=== PATIENT | male | born 1945 | race Caucasian/White ===

== ENCOUNTER 2017-10-25 10:38 | Inpatient (IN) | payer MEDICARE ==
--- NOTE | 2017-10-25 11:13 | ED ---
General Adult HPI - General Chief complaint: Seizure Stated complaint: Seizure Time Seen by Provider: 10/25/17 10:53 Source: patient, family, RN notes reviewed Mode of arrival: EMS Limitations: altered mental status - History of Present Illness Initial comments: Patient is a pleasant 72-year-old male presenting to the emergency department following seizure. Patient was acting abnormal for up to 15 minutes prior to seizure activity. Patient was confused and with bizarre behavior. Patient then had generalized seizure activity lasting around 3 minutes witnessed by the . Patient has been confused than seizure. Patient does have a history of seizure once approximately 30 years ago. No recent illness. No injury. Patient denies any pain however does admit to feeling somewhat confused. Patient does not recall the episode - Related Data Home Medications Medication Instructions Recorded Confirmed Aspirin EC [Ecotrin] 325 mg PO HS 10/25/17 10/25/17 Atorvastatin [Lipitor] 40 mg PO HS 10/25/17 10/25/17 Isosorbide Mononitrate ER [Imdur] 30 mg PO HS 10/25/17 10/25/17 Lisinopril [Zestril] 5 mg PO HS 10/25/17 10/25/17 Metoprolol Tartrate [Lopressor] 12.5 mg PO HS 10/25/17 10/25/17 Prasugrel [Effient] 10 mg PO DIRECTED 10/25/17 10/25/17 Allergies Allergy/AdvReac Type Severity Reaction Status Date / Time No Known Allergies Allergy Unverified 10/25/17 11:14 Review of Systems ROS Statement: Those systems with pertinent positive or pertinent negative responses have been documented in the HPI. ROS Other: All systems not noted in ROS Statement are negative. Constitutional: Denies: fever Eyes: Denies: eye pain ENT: Denies: ear pain Respiratory: Denies: cough Cardiovascular: Denies: chest pain Endocrine: Denies: fatigue Gastrointestinal: Denies: abdominal pain Genitourinary: Denies: dysuria Musculoskeletal: Denies: back pain Skin: Denies: rash Neurological: Denies: headache, weakness Past Medical History Past Medical History: Hyperlipidemia, Hypertension History of Any Multi-Drug Resistant Organisms: None Reported Past Surgical History: Coronary Bypass/CABG, Heart Catheterization With Stent Additional Past Surgical History / Comment(s): Triple bypass at age 49, Stent at age 64 Past Psychological History: No Psychological Hx Reported Smoking Status: Never smoker Past Alcohol Use History: None Reported Past Drug Use History: None Reported General Exam Limitations: no limitations General appearance: alert, in no apparent distress Head exam: Present: atraumatic Eye exam: Present: normal appearance, PERRL, EOMI, other (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 Absent: tenderness, meningismus Respiratory exam: Present: normal lung sounds bilaterally Cardiovascular Exam: Present: regular rate, normal rhythm GI/Abdominal exam: Present: soft. Absent: tenderness Extremities exam: Present: normal inspection. Absent: pedal edema, calf tenderness Neurological exam: Present: alert, altered, CN II-XII intact. Absent: motor sensory deficit Expanded Neurological exam: Present: protecting the airway Patient oriented to: Present: person (Only oriented to first name). Absent: place, time Speech: Present: fluid speech Cranial nerves: EOM's Intact: Normal, Facial Sensation: Normal Sensory exam: Upper Extremity Light Touch: Normal, Lower Extremity Light Touch: Normal Motor strength exam: RUE: 5, LUE: 5, RLE: 5, LLE: 5 Eye Response: (4) open spontaneously Motor Response: (6) obeys commands Verbal Response: (4) confused conversation Psychiatric exam: Present: normal affect, normal mood Skin exam: Present: normal color Course Vital Signs 10/25/17 10/25/17 10/25/17 10:40 11:51 13:00 Temperature 97.6 F Pulse Rate 68 61 67 Respiratory 20 18 18 Rate Blood Pressure 126/65 116/58 125/61 O2 Sat by Pulse 94 L 96 96 Oximetry EKG Findings - EKG Comments: EKG Findings:: Normal sinus rhythm 66. OK 160. QRS 102. QT 426. QTc 446. Left axis. Normal QRS. No acute ST change. Medical Decision Making - Medical Decision Making Patient reevaluated and resting comfortably in bed. Patient is slightly improved and is now oriented to place. Patient and family were updated on results and plan. Case was discussed in detail with Dr. Church, who will admit for hospital call. Neurology will be consulted. - Lab Data Result diagrams: 10/25/17 10:52 10/25/17 11:50 Lab Results 02/23/18 02/23/18 Range/Units 10:52 11:50 WBC 6.6 (3.8-10.6) k/uL RBC 5.04 (4.30-5.90) m/uL Hgb 15.9 (13.0-17.5) gm/dL Hct 46.8 (39.0-53.0) % MCV 92.9 (80.0-100.0) fL MCH 31.5 (25.0-35.0) pg MCHC 34.0 (31.0-37.0) g/dL RDW 12.6 (11.5-15.5) % Plt Count 228 (150-450) k/uL Neutrophils % 80 % Lymphocytes % 11 % Monocytes % 6 % Eosinophils % 1 % Basophils % 1 % Neutrophils # 5.3 (1.3-7.7) k/uL Lymphocytes # 0.8 L (1.0-4.8) k/uL Monocytes # 0.4 (0-1.0) k/uL Eosinophils # 0.1 (0-0.7) k/uL Basophils # 0.0 (0-0.2) k/uL Sodium 140 (137-145) mmol/L Potassium 4.3 (3.5-5.1) mmol/L Chloride 106 (98-107) mmol/L Carbon Dioxide 24 (22-30) mmol/L Anion Gap 10 mmol/L BUN 20 (9-20) mg/dL Creatinine 0.80 (0.66-1.25) mg/dL Est GFR (MDRD) Af Amer >60 (>60 ml/min/1.73 sqM) Est GFR (MDRD) Non-Af >60 (>60 ml/min/1.73 sqM) Glucose 112 H (74-99) mg/dL Calcium 9.0 (8.4-10.2) mg/dL Total Bilirubin 0.4 (0.2-1.3) mg/dL AST 25 (17-59) U/L ALT 29 (21-72) U/L Alkaline Phosphatase 79 (38-126) U/L Total Protein 6.0 L (6.3-8.2) g/dL Albumin 3.8 (3.5-5.0) g/dL Serum Alcohol <10 mg/dL - Radiology Data Radiology results: report reviewed (Computed tomography scan of the brain shows no acute hemorrhage or mass effect. Nonspecific faint periventricular white matter changes.) Disposition Clinical Impression: New onset seizure Disposition: ADMITTED IP TO THIS HOSP Referrals: Mary Agosto DO [Primary Care Provider] - 1-2 days Decision Time: 14:13
[2017-10-25 11:25] LABS: Basophils % (A) 1 %; Eosinophils # (A) 0.1 k/uL (0-0.7); Eosinophils % (A) 1 %; HCT 46.8 % (39.0-53.0); HGB 15.9 gm/dL (13.0-17.5); Lymphocytes # (A) 0.8 k/uL (1.0-4.8); Lymphocytes % (A) 11 %; MCH 31.5 pg (25.0-35.0); MCV 92.9 fL (80.0-100.0); Mean Platelet Volume 7.3; Monocytes # (A) 0.4 k/uL (0-1.0); Monocytes % (A) 6 %; Neutrophils # (A) 5.3 k/uL (1.3-7.7); Neutrophils % (A) 80 %; Platelet Count 228 k/uL (150-450); RBC 5.04 m/uL (4.30-5.90); RDW 12.6 % (11.5-15.5); WBC 6.6 k/uL (3.8-10.6)
--- NOTE | 2017-10-25 11:48 | CT ---
EXAMINATION TYPE: CT brain wo con DATE OF EXAM: 10/25/2017 COMPARISON: NONE HISTORY: Seizure activity CT DLP: 830.9 mGycm Automated exposure control for dose reduction was used. FINDINGS: Ventricular system is midline. There is no evidence of acute intracranial hemorrhage or mass effect. Faint periventricular hypoattenuation the white matter is nonspecific. Intracranial atherosclerotic c hanges noted. Calvarium intact. IMPRESSION: NO ACUTE HEMORRHAGE OR MASS EFFECT. THERE IS FAINT PERIVENTRICULAR WHITE MATTER CHANGES WHICH ARE NON SPECIFIC BUT MOST LIKELY ON THE BASIS OF REMOTE MICROVASCULAR ISCHEMIA. IF THERE IS CONCERN FOR ACUTE ISCHEMIA CORRELATE WITH MRI CLINICALLY WARRANTED.
[2017-10-25 12:11] LABS: ALT 29 U/L (21-72); AST 25 U/L (17-59); Albumin 3.8 g/dL (3.5-5.0); Alcohol <10 mg/dL; Alkaline Phosphatase 79 U/L (38-126); Anion Gap 10 mmol/L; Blood Urea Nitrogen 20 mg/dL (9-20); Carbon Dioxide 24 mmol/L (22-30); Chloride 106 mmol/L (98-107); Glucose 112 mg/dL (74-99); Potassium 4.3 mmol/L (3.5-5.1); Sodium 140 mmol/L (137-145); Total Bilirubin 0.4 mg/dL (0.2-1.3)
[2017-10-25] MEDS ORDERED: LORazepam 2 MG/ML INJ IV PRN (14:15)
[2017-10-25 14:30] LABS: Appearance,Urine Clear (Clear); Bilirubin,Urine Negative (Negative); Blood,Urine Negative (Negative); Color,Urine Yellow; Glucose,Urine (UA) Negative (Negative); Ketones,Urine Trace (Negative); Leukocyte Esterase,Urine Negative (Negative); Nitrite,Urine Negative (Negative); PH, Urine 5.5 (5.0-8.0); Protein,Urine Trace (Negative); Specific Gravity,Urine 1.017 (1.001-1.035); Urobilinogen,Urine <2.0 mg/dL (<2.0)
[2017-10-25] MEDS ORDERED: PHENYTOIN SODIUM INJ 1,000 MG in SODIUM CHLORIDE 0.9% 100 ML IVPB STA (14:31)
[2017-10-25 14:39] LABS: Amphetamine Screen,Urine Not Detected (NotDetected); Barbiturate Screen,Urine Not Detected (NotDetected); Benzodiazepines Screen,Urine Not Detected (NotDetected); Cocaine Screen,Urine Not Detected (NotDetected); Methadone Screen, Urine Not Detected (NotDetected); Opiate Screen,Urine Not Detected (NotDetected); Oxycodone Screen, Urine Not Detected (NotDetected); Phencyclidine Screen,Urine Not Detected (NotDetected); Tricyclic Antidepressant,Urine Not Detected (NotDetected); Urn Cannabinoid Scrn Not Detected (NotDetected)
[2017-10-25] MEDS: SODIUM CHLORIDE 0.9% 1,000 ML IV SCH (15:00)
[2017-10-25] MEDS ORDERED: SODIUM CHLORIDE 0.9% 1,000 ML IV ONE (15:03)
--- NOTE | 2017-10-25 19:28 | XR ---
EXAMINATION: XR chest 1V portable DATE AND TIME: 10/25/2017 7:00 PM ORDERING PROVIDER: Jamar Gamble CLINICAL INDICATION: pneumonia TECHNIQUE: AP portable upright COMPARISON: None. DESCRIPTION: EKG leads and sternal sutures and mediastinal clips noted. The lungs are clear. The pleural spaces are negative. The cardiac silhouette is not enlarged. The mediastinal and pleural silhouettes are unremarkable. The skeletal structures are intact without focal findings. The soft tissues are unremarkable. IMPRESSION: NO ACUTE PROCESS.
--- NOTE | 2017-10-25 20:07 | MR ---
EXAMINATION TYPE: MR brain wo con DATE OF EXAM: 10/25/2017 COMPARISON: NONE HISTORY: New onset seizure, hx of seizures 30 years ago TECHNIQUE: Standard multiplanar, multisequence MRI departmental protocol. Multiplanar, multisequence sequences acquired, including diffusion-weighted imaging. FINDINGS: There is no restricted diffusion to suggest acute or subacute infarction. There is no mass or mass effect or evidence of hemorrhage. There are a scattered 1 to 5 mm, with most measuring 1-2 mm, nonspecific deep white matter T2 hyperin tensities within the morelos radiata and centrum semiovale bilaterally. The extra-axial compartment is unremarkable. The vascular flow void pattern is unremarkable. The middle ear cavities and mastoid sinus air cells and paranasal sinuses are clear. The orbits are unremarkable. The calvarium is negative for focal skeletal defects. Incidental Finding: There is a 3 cm T2 hyperintense lobulated left parotid mass, centered in the supe rficial lobe of the left parotid. Further characterization of this mass is recommended with Doppler u ltrasound catheterization, and consideration of cervical lymph node station imaging with CT or MRI. IMPRESSION: 1. INCIDENTAL 3 CM LEFT PAROTID MASS. 2. NONSPECIFIC SCATTERED BILATERAL DEEP WHITE MATTER 1 - MM T2 HYPERINTENSITIES; REQUEST CLINICAL CON SIDERATION OF THE PROTEAN ETIOLOGIES INCLUDING INFLAMMATORY, INFECTIOUS, ISCHEMIC, ETC.
--- NOTE | 2017-10-25 20:33 | HP ---
HISTORY AND PHYSICAL CHIEF COMPLAINTS: Seizure disorder. HISTORY OF PRESENT ILLNESS: This 72-year-old gentleman with a past medical history of CAD, hyperlipidemia, history of right leg fracture, history of CAD, CABG, stent being followed by in the outpatient setting, had a last seizure about 4 years ago. Those seizures were thought to be related to alcohol. Today the patient was acting strange, according to he , and pacing up and down and subsequently patient had generalized tonic-clonic seizures and lasted for 15 minutes. The patient is confused. Patient was taken to [facility], admitted for further evaluation and treatment. Currently the sensorium has improved significantly; however the CT scan did not show any acute abnormality except suspected small-vessel ischemic changes. MRI has been arranged as well as neurology consultation. There is no history of any fever, rigors. There is no history of hematochezia melena, chest pain, palpitation at this time. PAST MEDICAL HISTORY: CAD, CABG, stent, hyperlipidemia, right leg fracture, history of smoking and history of alcohol also previously. MEDICATIONS PRIOR TO ADMISSION: Include home medications: 1. Effient 10 mg p.r.n. 2. Ecotrin 81 mg q.h.s. 3. Zestril 5 mg q.h.s. 4. Imdur 30 mg. 5. Lopressor 12.5 mg daily. 6. Lipitor 40 mg q.h.s. ALLERGIES: None. FAMILY HISTORY: History of CVA and TIA, dementia, stroke. SOCIAL HISTORY: Previous history of alcohol and smoking. No history of current usage. REVIEW OF SYSTEMS: ENT: No diminished hearing, diminished vision. CARDIOVASCULAR: No angina, palpitations. RESPIRATORY: No cough. GI: No nausea or vomiting. : No dysuria. NERVOUS: As mentioned earlier. ALLERGY/IMMUNOLOGY: No asthma or hay fever. MUSCULOSKELETAL: As mentioned earlier. HEMATOLOGY/ONCOLOGY: No history of anemia. ENDOCRINE: No history of diabetes, hypothyroidism. CONSTITUTIONAL: As mentioned earlier. DERMATOLOGY: Negative. RHEUMATOLOGY: Negative. PSYCHIATRY: As mentioned earlier. PHYSICAL EXAMINATION: Alert and oriented x2. Pulse 86, blood pressure 100/56, respirations 16, temperature 98.9, pulse ox 96% on 2L. HEENT: Conjunctivae normal. Oral mucosa moist. NECK: No jugular venous distention. No carotid bruits. No lymph node enlargement. CARDIOVASCULAR: S1, S2 muffled. RESPIRATORY: Breath sounds diminished in the bases. No rhonchi. No crackles. ABDOMEN: Soft, nontender. No mass palpable. No hepatosplenomegaly. LEGS: No edema. No swelling. NERVOUS SYSTEM: Higher functions as mentioned earlier. Moves all 4 limbs. No focal motor or sensory deficits. LYMPHATIC: No lymphadenopathy in neck or axillae. SKIN: No ulcer, rash or bleeding. LABS: CBC within normal limits. CMP: Glucose 112. Total protein 6. Drug screen is negative. ASSESSMENT: 1. Acute seizure disorder, tonic-clonic, for evaluation. 2. 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 3. History of coronary artery disease, coronary artery bypass graft, stent. 4. History of nicotine dependence. 5. History of EtOH. 6. Hyperlipidemia. 7. History of right leg fracture. 8. History of basal cell carcinoma, nose. RECOMMENDATIONS AND DISCUSSION: In this 72-year-old gentleman who presented with multiple complex medical issues , will monitor the patient closely. Continue with the current medical management, symptomatic treatment and resume the home medications. The patient to Dilantin. I would recommend MRI and to closely follow with Cardiology as well as Neurology. Telemetry to rule out cardiac arrhythmias. Guarded prognosis because of multiple complex medical issues. Further recommendations to follow. Repeat labs will be ordered. MMODL / IJN: [id number] / ANNELISE
[2017-10-25] MEDS ORDERED: ASPIRIN 325 MG TAB PO SCH (21:00)
[2017-10-25] MEDS ORDERED: ATORVASTATIN 40 MG TAB PO SCH (21:00)
[2017-10-25] MEDS ORDERED: LISINOPRIL 5 MG TAB PO SCH (21:00)
[2017-10-25] MEDS ORDERED: ISOSORBIDE MONONITRATE ER 30 MG TAB.ER.24H PO SCH (21:00)
[2017-10-25] MEDS ORDERED: METOPROLOL TARTRATE 12.5 MG TAB PO SCH (21:00)
[2017-10-25] MEDS: PHENYTOIN SODIUM EXTENDED 100 MG CAP PO SCH (21:07)
--- NOTE | 2017-10-25 22:15 | US ---
EXAMINATION TYPE: US carotid duplex BILAT DATE OF EXAM: 10/25/2017 COMPARISON: NONE CLINICAL HISTORY: Stenosis. Seizure EXAM MEASUREMENTS: RIGHT: Peak Systolic Velocity (PSV) cm/sec ----- Right CCA: 116.1 ----- Right ICA: 107.3 ----- Right ECA: 145.7 ICA/CCA ratio: 0.9 RIGHT: End Diastole cm/sec ----- Right CCA: 32.1 ----- Right ICA: 34.8 ----- Right ECA: 13.6 LEFT: Peak Systolic Velocity (PSV) cm/sec ----- Left CCA: 124.2 ----- Left ICA: 132.3 ----- Left ECA: 143.7 ICA/CCA ratio: 1.1 LEFT: End Diastole cm/sec ----- Left CCA: 33.8 ----- Left ICA: 35.4 ----- Left ECA: 25.4 VERTEBRALS (direction of flow): Right Vertebral: Antegrade Left Vertebral: Antegrade Rhythm: Normal IMPRESSION: 1. NEGATIVE FOR HEMODYNAMICALLY SIGNIFICANT STENOSIS. 2. MILD TO MODERATE PLAQUE BILATERAL BIFURCATIONS. 3. SLIGHTLY INCREASED VELOCITIES BILATERAL ECA AND LEFT ICA.
[2017-10-26 04:29] VITALS: RESP 16
[2017-10-26 07:40] LABS: Basophils % (A) 0 %; Eosinophils # (A) 0.1 k/uL (0-0.7); Eosinophils % (A) 2 %; HCT 41.9 % (39.0-53.0); HGB 13.6 gm/dL (13.0-17.5); Lymphocytes # (A) 1.2 k/uL (1.0-4.8); Lymphocytes % (A) 18 %; MCH 31.3 pg (25.0-35.0); MCHC 32.4 g/dL (31.0-37.0); MCV 96.5 fL (80.0-100.0); Mean Platelet Volume 7.1; Monocytes # (A) 0.5 k/uL (0-1.0); Monocytes % (A) 8 %; Neutrophils # (A) 4.7 k/uL (1.3-7.7); Neutrophils % (A) 71 %; Platelet Count 175 k/uL (150-450); RBC 4.35 m/uL (4.30-5.90); RDW 12.5 % (11.5-15.5); WBC 6.6 k/uL (3.8-10.6)
[2017-10-26 07:59] LABS: Anion Gap 8 mmol/L; Blood Urea Nitrogen 14 mg/dL (9-20); Calcium 8.7 mg/dL (8.4-10.2); Carbon Dioxide 25 mmol/L (22-30); Chloride 108 mmol/L (98-107); Cholesterol 137 mg/dL (<200); Glucose 78 mg/dL (74-99); HDL Cholesterol 43 mg/dL (40-60); LDL Cholesterol,Calculated 78 mg/dL (0-99); Potassium 4.2 mmol/L (3.5-5.1); Sodium 141 mmol/L (137-145); Triglycerides 81 mg/dL (<150)
--- NOTE | 2017-10-26 08:51 | ECHOF ---
Referral Reason:Thrombus MEASUREMENTS -------- HEIGHT: 165.1 cm WEIGHT: 79.4 kg BP: 125/61 RVIDd: 2.6 cm (< 3.3) IVSd: 0.9 cm (0.6 - 1.1) LVIDd: 4.7 cm (3.9 - 5.3) LVPWd: 1.0 cm (0.6 - 1.1) IVSs: 1.3 cm LVIDs: 3.7 cm LVPWs: 1.3 cm LAESV Index (A-L): 18.89 ml/m Ao Diam: 3.1 cm (2.0 - 3.7) AV Cusp: 1.5 cm (1.5 - 2.6) LA Diam: 3.4 cm (2.7 - 3.8) EPSS: 1.3 cm MV E Joaquin: 0.64 m/s MV DecT: 338 ms MV A Joaquin: 0.87 m/s MV E/A Ratio: 0.74 AV maxP.64 mmHg AV meanP.89 mmHg RAP: 5.00 mmHg RVSP: 31.23 mmHg MV EF SLOPE: 62.49 mm/s (70 - 150) MV EXCURSION: 1.70 cm (> 18.000) FINDINGS -------- Sinus rhythm. This was a technically adequate study. The left ventricular size is normal. Left ventricular wall thickness is normal. Overall left vent ricular systolic function is normal with, an EF between 55 - 60 %. The right ventricle is normal in size and function. Normal LA size by volume 22+/-6 ml/m2. The right atrium is normal in size. There is mild aortic valve sclerosis. There is no evidence of aortic regurgitation. There is no e vidence of aortic stenosis. The mitral valve leaflets are mildly thickened. There is trace to mild mitral regurgitation. Trace tricuspid regurgitation present. Right ventricular systolic pressure is normal at < 35 mmHg. There is no evidence of pulmonary hypertension. The pulmonic valve is normal. The aortic root size is normal. Normal inferior vena cava with normal inspiratory collapse consistent with estimated right atrial pre ssure of 5 mmHg. The pericardium is normal. There is no pericardial effusion. CONCLUSIONS -------- 1. Sinus rhythm. 2. This was a technically adequate study. 3. The left ventricular size is normal. 4. Left ventricular wall thickness is normal. 5. Overall left ventricular systolic function is normal with, an EF between 55 - 60 %. 6. Normal LA size by volume 22+/-6 ml/m2. 7. There is mild aortic valve sclerosis. 8. The mitral valve leaflets are mildly thickened. 9. There is trace to mild mitral regurgitation. 10. Trace tricuspid regurgitation present. 11. Right ventricular systolic pressure is normal at < 35 mmHg. 12. There is no evidence of pulmonary hypertension. 13. The aortic root size is normal. 14. There is no pericardial effusion. CURATORIAL SPECIALIST: Kwesi Cruz RDCS
[2017-10-26] MEDS ORDERED: METOPROLOL TARTRATE 12.5 MG TAB PO SCH (09:00)
[2017-10-26] MEDS: SODIUM CHLORIDE 0.9% 1,000 ML IV SCH ×2 (10:39→14:20)
[2017-10-26] MEDS ORDERED: ACETAMINOPHEN TAB 325 MG TAB PO PRN (12:03)
[2017-10-26] MEDS: PHENYTOIN SODIUM EXTENDED 100 MG CAP PO SCH (12:19)
[2017-10-26 12:34] VITALS: TEMP 98
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
[2017-10-26 16:12] VITALS: BP 107/66; PULSE 58
--- NOTE | 2017-10-26 17:01 | CONS ---
CONSULTATION This is a 72-year-old gentleman with a history of hypertension, hyperlipidemia, CAD with a prior bypass surgery and PCI. He presented here after a witnessed seizure by family and I was asked to see him because of his CAD. He has no chest discomfort. He is resting comfortably. Apparently this was a new onset seizure, although the last seizure he had was 30 years ago when he was having some alcohol withdrawals. His blood pressure has been under good control. He underwent stenting in 2008 and 2012. Has not had a stress test. He is quite active physically, has no chest pain to suggest angina with his day-to-day activities. The patient presented here after having an episode of seizure. Prior to the seizure, he had some bout of an abnormal bizarre behavior. He is being evaluated by Neurology. Cardiac-jerome appears to be stable. No chest pain or shortness of breath. The CAT scan also did not reveal any acute hemorrhage or mass effect. PAST MEDICAL HISTORY: 1. History of CAD with previous bypass surgery and PCI, the last stent was 2012. 2. Hypertension. 3. Hyperlipidemia. 4. History of alcoholism more than 30 years ago. At that time, he had some seizures. SOCIAL HISTORY: Not a smoker. Stopped alcohol 30 years ago. MEDICATIONS: Medications include aspirin 325 mg daily, Lipitor 40 mg daily, Imdur 30 mg daily, lisinopril 5 mg daily, metoprolol tartrate 12.5 mg daily, Effient 10 mg daily. ALLERGIES: No known allergies. PHYSICAL EXAMINATION: On examination, blood pressure is 128/70, pulse rate is 68 per minute regular. HEENT: Unremarkable. Fundus was not examined by me. Neck is supple. No JVD. I do not hear a carotid bruit. Heart exam reveals S1, S2 heard normally. No significant murmurs. Lungs are clear. Abdomen is soft, nontender. Lower extremities reveal normal pulses, no edema. Central nervous system is normal. EKG revealed sinus mechanism, no acute changes. IMPRESSION: 1. New onset seizures. Neurology is being consulted and will be evaluated in this regard. 2. Stable coronary artery disease with a history of prior bypass surgery and PCI without evidence of ischemia. RECOMMENDATION: I am recommending that we can discontinue Effient altogether. Continue his other medications including aspirin and I will see this patient as needed from a cardiac standpoint. No other aggressive intervention is necessary at this time. His echocardiogram has been performed and revealed normal left ventricular size and systolic function without significant pulmonary hypertension. There is some aortic sclerosis and mild mitral annular calcification. No aggressive intervention necessary. Thank you very much for the consult. MARIA GUADALUPE / KEYANNA: [id number] /
[2017-10-26] MEDS ORDERED: levETIRAcetam 500 MG TAB PO SCH (21:00)
[2017-10-26] MEDS ORDERED: PRASUGREL 10 MG TAB PO SCH (21:00)
--- NOTE | 2017-10-26 23:28 | DS ---
DISCHARGE SUMMARY DATE OF SERVICE: 10/26/2017. FINAL DIAGNOSES: 1. Acute seizure disorder tonic-clonic. 2. History of previous seizures remotely related to alcohol apparently. 3. Left parotid mass. 4. History of coronary artery disease/coronary artery bypass grafting, stent. 5. History of nicotine dependence. 6. History of EtOH remotely. 7. History of hyperlipidemia. 8. Right leg fracture. 9. History of basal cell carcinoma of the nose. DISCHARGE DISPOSITION: The patient is being discharged in stable condition with guarded prognosis. Neurology cleared the patient for discharge. HISTORY OF PRESENT ILLNESS: This 72-year-old gentleman, was admitted with seizure disorder. Patient has multiple complex medical issues in the outpatient setting. The patient was treated symptomatically. Patient improved significantly and neurology cleared the patient for discharge. Keppra was initiated. MRI showed left parotid mass. DISCHARGE ADVICE AND MEDICATIONS: 1. Diet is cardiac diet. 2. Activity limited until followup. 3. Follow up with. 4. Recommended CT scan in the outpatient setting. PHYSICAL EXAMINATION: Vital signs stable. Cardiac system: S1, S2 muffled. Respiratory: Breath sounds diminished in the bases. Legs: No edema. No swelling. Central nervous system : No focal deficits. DISCHARGE ADVICE AND MEDICATIONS: 1. Diet is cardiac diet. 2. Activity limited until follow up. 3. Follow up with in one to two days. 4. Follow up with Dr. Garcia as advised. Cate. 5. Outpatient CT scan. 6. Ecotrin 320 mg q.h.s. 7. Lipitor 40 mg q.h.s. 8. Imdur ER 30 mg q.h.s. 9. Keppra 500 mg p.o. b.i.d. 10.Zestril 5 mg q.h.s. 11.Lopressor 12.5 mg daily. 12.Effient 10 mg p.o. q.h.s. Once again the patient is being discharged in stable condition with guarded prognosis. MMODL / IJN: [id number] / MTDD
--- NOTE | 2017-10-27 14:21 | EEG ---
ELECTROENCEPHALOGRAM REPORT DATE OF SERVICE: 10/26/2017. REASON FOR TESTING: Seizure. CURRENT ANTIEPILEPTIC MEDICATIONS: Dilantin. DESCRIPTION OF THE PROCEDURE: This EEG was performed using a 21 channel digital electroencephalograph, following international 10-20 system. DESCRIPTION OF THE RECORDING: From the beginning of the tracing, and with patient's eyes closed, the background rhythm was mostly consisting of 9-10 Hz alpha frequency in the posterior occipital leads. No obvious asymmetry is seen. Occasional movement artifacts and lead artifacts are seen. Photic stimulation was performed with a good driving response seen. No pathological waves were elicited. Hyperventilation was not performed. The patient remains awake throughout the tracing. No epileptiform discharges were seen. His EKG lead showed a regular rate and rhythm. INTERPRETATION: This awake EEG can be considered within normal limits. There is no asymmetry seen. No epileptiform discharges were noticed. The absence of epileptiform discharges does not rule out the diagnosis of epilepsy, therefore clinical correlation is recommended. MMSKYLERL / IJMaryann: [id number] /
== END 2017-10-26 16:40 | disposition home or self-care (01) | DRG 101 ==
LOC: EC 10:38 → OBSVTOIN 14:14 → 3OBS 14:14
PROVIDERS: ADMIT Internal Medicine; ATTEND Internal Medicine
DX: G40.409 Other generalized epilepsy and epileptic syndromes, not intractable, without status epilepticus (principal); I35.8 Other nonrheumatic aortic valve disorders; E78.5 Hyperlipidemia, unspecified; I10 Essential (primary) hypertension; I25.10 Atherosclerotic heart disease of native coronary artery without angina pectoris; Z95.5 Presence of coronary angioplasty implant and graft; Z95.1 Presence of aortocoronary bypass graft; Z85.828 Personal history of other malignant neoplasm of skin; Z79.82 Long term (current) use of aspirin; Z79.899 Other long term (current) drug therapy; Z82.49 Family history of ischemic heart disease and other diseases of the circulatory system
CPT/HCPCS: 36415; 70450; 70551; 71045; 80048; 80053; 80061; 80306; 80320; 81003; 83735; 85025; 93005; 93306; 93880; 95819; 96361; 96365; 96375; 99285

== ENCOUNTER 2017-12-11 16:29 | Observation (INO) | payer MEDICARE ==
[2017-12-11] MEDS ORDERED: SODIUM CHLORIDE 0.9% 500 ML IV STA (17:13)
[2017-12-11] MEDS ORDERED: SODIUM CHLORIDE 0.9% 1,000 ML IV STA (17:13)
[2017-12-11 17:34] LABS: Basophils % (A) 1 %; Eosinophils # (A) 0.1 k/uL (0-0.7); Eosinophils % (A) 1 %; HCT 46.9 % (39.0-53.0); HGB 15.8 gm/dL (13.0-17.5); Lymphocytes # (A) 0.8 k/uL (1.0-4.8); Lymphocytes % (A) 12 %; MCH 30.7 pg (25.0-35.0); MCHC 33.7 g/dL (31.0-37.0); Mean Platelet Volume 8.1; Monocytes # (A) 0.6 k/uL (0-1.0); Monocytes % (A) 9 %; Neutrophils # (A) 4.9 k/uL (1.3-7.7); Neutrophils % (A) 76 %; Platelet Count 229 k/uL (150-450); RBC 5.15 m/uL (4.30-5.90); RDW 12.9 % (11.5-15.5); WBC 6.5 k/uL (3.8-10.6)
[2017-12-11 17:41] LABS: MCV 91.1 fL (80.0-100.0)
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
[2017-12-11 17:51] LABS: ALT 25 U/L (21-72); AST 28 U/L (17-59); Acetaminophen <10.0 ug/mL; Albumin 4.3 g/dL (3.5-5.0); Alcohol <10 mg/dL; Alkaline Phosphatase 85 U/L (38-126); Anion Gap 18 mmol/L; Blood Urea Nitrogen 28 mg/dL (9-20); Calcium 9.5 mg/dL (8.4-10.2); Carbon Dioxide 20 mmol/L (22-30); Chloride 102 mmol/L (98-107); Glucose 116 mg/dL (74-99); Potassium 4.5 mmol/L (3.5-5.1); Salicylate <1.0 mg/dL; Sodium 140 mmol/L (137-145); Total Bilirubin 0.3 mg/dL (0.2-1.3); Total Protein 6.6 g/dL (6.3-8.2)
[2017-12-11 18:18] LABS: Appearance,Urine Clear (Clear); Bacteria,Urine Rare /hpf; Bilirubin,Urine Negative (Negative); Blood,Urine Negative (Negative); Color,Urine Yellow; Glucose,Urine (UA) Negative (Negative); Hyaline Casts,Urine 5 /lpf (0-2); Ketones,Urine 1+ (Negative); Leukocyte Esterase,Urine Negative (Negative); Nitrite,Urine Negative (Negative); PH, Urine 5.5 (5.0-8.0); Protein,Urine 1+ (Negative); RBC,Urine <1 /hpf (0-5); Specific Gravity,Urine 1.022 (1.001-1.035); Urobilinogen,Urine <2.0 mg/dL (<2.0); WBC,Urine <1 /hpf (0-5)
[2017-12-11 18:24] LABS: Amphetamine Screen,Urine Not Detected (NotDetected); Barbiturate Screen,Urine Not Detected (NotDetected); Benzodiazepines Screen,Urine Not Detected (NotDetected); Cocaine Screen,Urine Not Detected (NotDetected); Methadone Screen, Urine Not Detected (NotDetected); Opiate Screen,Urine Not Detected (NotDetected); Oxycodone Screen, Urine Not Detected (NotDetected); Phencyclidine Screen,Urine Not Detected (NotDetected); Tricyclic Antidepressant,Urine Not Detected (NotDetected); Urn Cannabinoid Scrn Not Detected (NotDetected)
[2017-12-11] MEDS ORDERED: LORazepam 2 MG/ML INJ IV PRN (18:48)
[2017-12-11] MEDS ORDERED: VALPROATE SODIUM 500 MG in SODIUM CHLORIDE 0.9% 50 ML IVPB STA (18:49)
[2017-12-11 19:19] VITALS: RESP 18
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
[2017-12-11] MEDS ORDERED: levETIRAcetam 500 MG TAB PO SCH (21:00)
[2017-12-11] MEDS ORDERED: levETIRAcetam IV 1,000 MG in SALINE 1 100ML.BAG IVPB STA (21:57)
[2017-12-11] MEDS: ASPIRIN 325 MG TAB PO SCH (22:08)
[2017-12-11] MEDS: PRASUGREL 10 MG TAB PO SCH (22:08)
[2017-12-11] MEDS: ISOSORBIDE MONONITRATE ER 30 MG TAB.ER.24H PO SCH (22:08)
[2017-12-11] MEDS: ATORVASTATIN 40 MG TAB PO SCH (22:08)
[2017-12-11] MEDS: LISINOPRIL 5 MG TAB PO SCH (22:09)
[2017-12-12] MEDS ORDERED: ACETAMINOPHEN TAB 325 MG TAB PO PRN (01:40)
[2017-12-12] MEDS ORDERED: levETIRAcetam IV 500 MG in SODIUM CHLORIDE 0.9% 100 ML IVPB SCH (09:00)
[2017-12-12] MEDS: ENOXAPARIN 40 MG/0.4 ML SYRINGE SQ SCH (09:10)
[2017-12-12] MEDS: METOPROLOL TARTRATE 12.5 MG TAB PO SCH (09:11)
--- NOTE | 2017-12-12 14:09 | P.PN ---
Subjective Progress Note Date: 12/12/17 Principal diagnosis: Patient is followed up for breakthrough seizure Patient seen and examined today, denies any headache or focal neurologic deficits. He is reporting some diplopia however he reports that this is not due to him. Denies any chest pain or trouble breathing at this time. Denies any further seizures since the last one he had in the ED Objective - Vital Signs Vital signs: Vital Signs Temp 98.1 F 12/12/17 06:23 Pulse 68 12/12/17 06:23 Resp 18 12/12/17 06:23 BP 105/58 12/12/17 06:23 Pulse Ox 96 12/12/17 08:41 Intake & Output 12/11/17 12/12/17 12/12/17 18:59 06:59 18:59 Intake Total 240 100 Output Total 325 Balance 240 -225 Weight 76.204 kg 75.977 kg Intake: IV 100 levETIRAcetam IV 500 mg 100 In Sodium Chloride 0.9% 100 ml @ 400 mls/hr IVPB Q12HR BRITT Rx#:[id number] Oral 240 Output: Urine 325 Other: # Voids 2 2 - Exam Constitutional: vital signs stable, Not in acute distress, pleasant, conversant Lungs: Clear to auscultation bilaterally, clear to percussion, normal respiratory effort Cardiovascular: Regular rate and rhythm, no murmurs, no gallops, no rubs, no peripheral edema Gastrointestinal: Soft, no tenderness to palpation, bowel sounds positive Extremities: No digital cyanosis or clubbing, peripheral pulses palpable and equal over bilateral radial arteries and dorsalis pedis artery, no calf muscle tenderness Psych: Alert, oriented to place, person and time, appropriate affect, intact judgment - Labs CBC & Chem 7: 12/11/17 16:42 12/11/17 16:42 Labs: Abnormal Lab Results - Last 24 Hours (Table) 12/11/17 12/11/17 12/11/17 Range/Units 16:42 16:42 17:53 Lymphocytes # 0.8 L (1.0-4.8) k/uL Carbon Dioxide 20 L (22-30) mmol/L BUN 28 H (9-20) mg/dL Glucose 116 H (74-99) mg/dL Urine Protein 1+ H (Negative) Urine Ketones 1+ H (Negative) Urine Bacteria Rare H (None) /hpf Hyaline Casts 5 H (0-2) /lpf Assessment and Plan Assessment: 72-year-old male with history of seizures, CAD status post stents and CABG, hypertension, and hyperlipidemia. He reports that he had the first seizure 45 years ago and it was associated with alcohol withdrawal. He remained on antiepileptic drugs for over 10 years and then he stopped them gradually. And then he went on for over 20 years without any seizures. However one month ago he had an episode of seizure he described it as grand mal seizure for which she was started on Keppra. He reports that in the past he was on phenobarbital and Dilantin but he didn't like how they made him feel. And when he was on Keppra for the past month gave him the same feeling if he didn't like say he decided to wean himself off Keppra which resulted in a breakthrough seizure that he had yesterday. He is not willing to continue back on Keppra and he would like to have a different agent, he is not willing to be on Dilantin either. For which we are waiting for neurology for their recommendations. Plan: #Breakthrough seizures secondary to noncompliance Currently resumed on Keppra however patient would like to consider different agents Seizure precautions Patient recently had full workup once ago including brain imaging which was reviewed and will not be repeated at this time pending further recommendations from neurology. MRI of the brain and computed tomography scan of the brain showed no acute process. Carotid ultrasound was negative for significant stenosis. Neurology consult #History of CAD Continue home medications Aspirin, Imdur, RACH inhibitor, statin, Effient, metoprolol Patient had a stress test done results are unknown, continue follow up outpatient as scheduled with cardiology #Hypertension currently controlled Continue home medications #Hyperlipidemia Continue home medications was Lipitor #DVT prophylaxis on Lovenox subcu #Incidental finding of left parotid mass during the MRI from last visit Consider outpatient follow-up PCP
[2017-12-12] MEDS: OXcarbazepine 300 MG TAB PO SCH (19:24)
[2017-12-12] MEDS: PRASUGREL 10 MG TAB PO SCH (21:09)
[2017-12-12] MEDS: ASPIRIN 325 MG TAB PO SCH (21:11)
[2017-12-12] MEDS: ISOSORBIDE MONONITRATE ER 30 MG TAB.ER.24H PO SCH (21:11)
[2017-12-12] MEDS: ATORVASTATIN 40 MG TAB PO SCH (21:11)
[2017-12-12] MEDS: LISINOPRIL 5 MG TAB PO SCH (21:11)
--- NOTE | 2017-12-12 21:50 | CONS ---
CONSULTATION DATE OF CONSULTATION: 12/12/2017 CHIEF COMPLAINT: Seizure. HISTORY OF PRESENT ILLNESS: Mr. Swan is a pleasant 72-year-old male who is being evaluated by the neurology service per the request of Dr. Gutierrez for a seizure. The patient was brought into [facility] Emergency Room after he had a witnessed seizure which was described as a generalized tonic-clonic seizure with postictal drowsiness. The patient had a recent seizure 2 months ago and was started on Keppra and discharged home. He states that he had significant side effects on Keppra, including drowsiness and a depressed mood. He slowly weaned himself off of the medication and took his last dose approximately 3 days ago. His Keppra levels were undetectable on this admission. The patient has a remote history of seizures approximately 40 years ago and was on Dilantin and phenobarbital for several years. He had been off of phenobarbital and Dilantin for approximately 20 years before he had this last seizure 2 months ago. This current seizure lasted approximately 3 minutes and was described as a generalized tonic-clonic seizure. The patient had a CT scan of the brain on his last admission which was normal. On this admission, his CBC and urinalysis were normal. His Keppra level was undetectable. His comprehensive metabolic profile was normal except for slightly elevated BUN at 28. At the time of my evaluation, he is sitting up in his bed and appears to be in no acute distress. He has been restarted on Keppra IV. He has not had any seizure-like activity since his admission. He denies any neurological symptoms at this time. PAST MEDICAL HISTORY: 1. Seizure disorder. 2. Coronary artery disease. 3. Dyslipidemia. 4. Remote history of alcohol abuse. 5. Skin cancer with history of resection. 6. History of appendectomy. 7. Coronary artery bypass grafting with stent placements as well. 8. Cataract surgery. SOCIAL HISTORY: He denies any alcohol or drug use at this time. He does have a remote history of alcohol abuse. He is a former smoker. FAMILY HISTORY: Positive for strokes, heart disease, dementia. HOME MEDICATIONS: Reviewed in the chart. ALLERGIES: PLAVIX. REVIEW OF SYSTEMS: CONSTITUTIONAL: Negative. EYES: Negative. ENT: Negative. CARDIOVASCULAR: Negative. RESPIRATORY: Negative. NEUROLOGICAL: As mentioned above. GASTROINTESTINAL: Negative. GENITOURINARY: Negative. DERMATOLOGICAL: Negative. MUSCULOSKELETAL: Negative. ENDOCRINE: Negative. PSYCHIATRIC: Negative. PHYSICAL EXAMINATION: Vital signs show a temperature of 98.4, pulse 67, respiration 18, blood pressure 122/69. GENERAL APPEARANCE: The patient is a well-developed elderly male who appears to be in no acute distress. HEENT: Normocephalic, atraumatic. No facial asymmetry is seen. He appears to have a stye on the right eyelid. NECK: Supple with no masses felt. CARDIOVASCULAR: Regular rate and rhythm. ABDOMEN: Nontender, nondistended. Extremities showed no edema or clubbing. NEUROLOGICAL EXAMINATION: The patient is alert, aware and oriented x3. Speech and language are normal. Strength is full in all 4 extremities. Sensory exam was normal to light touch in all 4 extremities. No facial asymmetry is seen on cranial nerve testing. No tremors or seizure-like activity is seen. IMPRESSION: 1. Seizure disorder. 2. Medication noncompliance due to adverse affects. RECOMMENDATION: The patient did have another generalized tonic-clonic seizure. As mentioned above, the patient had weaned himself off of Keppra without medical advice due to the above- mentioned adverse effects. I had a lengthy discussion with him regarding various treatment options. Vimpat would have been a good choice, but due to financial reasons, I discussed other medication options. I will start him on Trileptal 300 mg b.i.d., and after one week he will titrate up to 600 mg b.i.d. Possible side effects were discussed with the patient. The patient was informed that he is not to drive or operate any heavy machinery for a period of 6 months of being seizure-free. He will follow up with me after his discharge. He already has an appointment scheduled for later this month. From a neurology standpoint, the patient will likely be cleared for discharge tomorrow if he remains seizure-free. Thank you for allowing me to participate in the care of your patient. If you have any questions, please feel free to contact me. MARIA GUADALUPE / IJN: [id number] /
[2017-12-13 06:07] VITALS: BP 99/60; PULSE 52; TEMP 97.7
[2017-12-13] MEDS: ENOXAPARIN 40 MG/0.4 ML SYRINGE SQ SCH (08:10)
[2017-12-13] MEDS: OXcarbazepine 300 MG TAB PO SCH (08:10)
--- NOTE | 2017-12-13 11:06 | P.DS ---
Providers Date of admission: 12/11/17 18:46 Attending physician: Ross Gutierrez MD Consults: 12/11/17 18:46 Consult Physician Routine Consulting Provider: Douglas Garcia Consult Reason/Comments: known Do you want consulting provider notified?: Yes Primary care physician: Mary Agosto Hospital Course: Final diagnosis upon discharge #Breakthrough seizure secondary to medical noncompliance due to intolerance of side effects of current antiepileptic drugs Secondary diagnoses #History of CAD status post stents and CABG #Hypertension #Hyperlipidemia #Left parotid mass Hospital course 72-year-old male with history of seizures, CAD status post stents and CABG, hypertension, and hyperlipidemia. He reports that he had the first seizure 45 years ago and it was associated with alcohol withdrawal. He remained on antiepileptic drugs for over 10 years and then he stopped them gradually. And then he went on for over 20 years without any seizures. However one month ago he had an episode of seizure he described it as grand mal seizure for which she was started on Keppra. He reports that in the past he was on phenobarbital and Dilantin but he didn't like how they made him feel. And when he was on Keppra for the past month gave him the same feeling if he didn't like say he decided to wean himself off Keppra which resulted in a breakthrough seizure that he had yesterday. He is not willing to continue back on Keppra and he would like to have a different antiepileptic drug, he is not willing to be on Dilantin either. Neurology evaluated the patient and after thorough discussions with the patient regarding cost of different medications and side effect profile patient elected to be on Trileptal which she will be started on 300 mg twice a day and then will be uptitrated after 1 week, he will also follow-up with neurology service for further workup and monitoring. Patient verbalized understanding of the above plan and agreement. Again neurology service has reviewed his extensive workup that was done around a month ago during his last admission which included but not limited to MRI of the brain, CAT scan of the brain, EEG (was within normal limits), and neurology did not recommend any further workup at this point. Patient is aware of the incidental finding of left parotid mass and he claims that he had for many years and been evaluated before by other doctors in that the mass is not growing or painful. Patient seen and examined on day of discharge, no seizure activities during this hospital course except for the one he had in the ED initially. Patient denies any focal neurologic deficits, headache, changes in vision, changes in hearing. He reports that his diplopia has resolved. Denies any chest pain or trouble breathing at this point. He is tolerating diet. Constitutional: vital signs stable, Not in acute distress, pleasant, conversant Lungs: Clear to auscultation bilaterally, clear to percussion, normal respiratory effort Cardiovascular: Regular rate and rhythm, no murmurs, no gallops, no rubs, no peripheral edema Gastrointestinal: Soft, no tenderness to palpation, bowel sounds positive Extremities: No digital cyanosis or clubbing, peripheral pulses palpable and equal over bilateral radial arteries and dorsalis pedis artery, no calf muscle tenderness Psych: Alert, oriented to place, person and time, appropriate affect, intact judgment Patient will be discharged in stable clinical condition with follow-up with his PCP and neurology service. Prescription for Trileptal was sent to his preferred pharmacy upon his request Patient counseled to avoid driving, running any heavy machinery's, or drive any public transportation vehicles for at least [address] [facility] after having a seizure. Patient again verbalized understanding. Patient Condition at Discharge: Fair Plan - Discharge Summary New Discharge Prescriptions: New OXcarbazepine [Trileptal] 300 mg PO BID #60 tab Continue Prasugrel [Effient] 10 mg PO HS Lisinopril [Zestril] 5 mg PO HS Isosorbide Mononitrate ER [Imdur] 30 mg PO HS Aspirin EC [Ecotrin] 325 mg PO HS Metoprolol Tartrate [Lopressor] 12.5 mg PO DAILY Atorvastatin [Lipitor] 40 mg PO HS Discontinued levETIRAcetam [Keppra] 250 mg PO Q48H Discharge Medication List Aspirin EC [Ecotrin] 325 mg PO HS 10/25/17 [History] Atorvastatin [Lipitor] 40 mg PO HS 10/25/17 [History] Isosorbide Mononitrate ER [Imdur] 30 mg PO HS 10/25/17 [History] Lisinopril [Zestril] 5 mg PO HS 10/25/17 [History] Metoprolol Tartrate [Lopressor] 12.5 mg PO DAILY 10/25/17 [History] Prasugrel [Effient] 10 mg PO HS 10/25/17 [History] OXcarbazepine [Trileptal] 300 mg PO BID #60 tab 12/13/17 [Rx] Follow up Appointment(s)/Referral(s): Mary Agosto DO [Primary Care Provider] - 12/17/17 2:00 pm Douglas Garcia MD [STAFF PHYSICIAN] - 12/24/17 3:30 pm Patient Instructions/Handouts: Recurrent Seizures in Adults (ED) Activity/Diet/Wound Care/Special Instructions: diet as tolerated, activity as tolerated Patient should avoid driving, running any heavy machinery's, or drive any public transportation vehicles for at least 6 months persisted to [facility] after having a seizure. Discharge Disposition: HOME SELF-CARE
[2017-12-13] MEDS: METOPROLOL TARTRATE 12.5 MG TAB PO SCH (11:11)
== END 2017-12-13 11:17 | disposition home or self-care (01) ==
LOC: EC 16:29 → 4MS4W 18:46
PROVIDERS: ADMIT Internal Medicine; ATTEND Internal Medicine
DX: G40.409 Other generalized epilepsy and epileptic syndromes, not intractable, without status epilepticus (principal); T42.6X6A Underdosing of other antiepileptic and sedative-hypnotic drugs, initial encounter; Z91.128 Patient's intentional underdosing of medication regimen for other reason; I25.10 Atherosclerotic heart disease of native coronary artery without angina pectoris; Z95.5 Presence of coronary angioplasty implant and graft; Z95.1 Presence of aortocoronary bypass graft; F05 Delirium due to known physiological condition; I10 Essential (primary) hypertension; R79.89 Other specified abnormal findings of blood chemistry; E78.5 Hyperlipidemia, unspecified; H53.2 Diplopia; Z79.82 Long term (current) use of aspirin; Z79.01 Long term (current) use of anticoagulants; Z79.899 Other long term (current) drug therapy; Z88.8 Allergy status to other drugs, medicaments and biological substances; Z87.898 Personal history of other specified conditions; Z85.828 Personal history of other malignant neoplasm of skin; Z87.891 Personal history of nicotine dependence; Z82.3 Family history of stroke; Z82.49 Family history of ischemic heart disease and other diseases of the circulatory system; Z81.8 Family history of other mental and behavioral disorders
CPT/HCPCS: 96361 ×6; 96365 ×2; 96375 ×2; 99285 ×2; 96366; 96367; 96372; 36415; 94760 ×2; 93005; 92610; 80053; 80177; 85025; 81001; 80306; 83520 ×2; 80320; G0378 ×3; J2060; J1650; J1953 ×2

== ENCOUNTER → 2020-08-08 | Outpatient (CLI) | payer MEDICARE ==
--- NOTE | 2020-08-08 15:52 | US ---
EXAMINATION TYPE: US carotid duplex BILAT DATE OF EXAM: 08/08/2020 COMPARISON: Carotid ultrasound October 25, 2017 CLINICAL HISTORY: I65.29 OCCLUSION,STENOSIS. memory loss EXAM MEASUREMENTS: RIGHT: Peak Systolic Velocity (PSV) cm/sec ----- Right CCA: 108 ----- Right ICA: 98.2 ----- Right ECA: 121 ICA/CCA ratio: 0.9 RIGHT: End Diastole cm/sec ----- Right CCA: 23.5 ----- Right ICA: 23.5 ----- Right ECA: 16.0 LEFT: Peak Systolic Velocity (PSV) cm/sec ----- Left CCA: 101 ----- Left ICA: 96.2 ----- Left ECA: 71.9 ICA/CCA ratio: 0.9 LEFT: End Diastole cm/sec ----- Left CCA: 26.2 ----- Left ICA: 30.8 ----- Left ECA: 11.3 VERTEBRALS (direction of flow): Right Vertebral: Antegrade Left Vertebral: Antegrade Rhythm: Normal Heterogenous moderate eccentric plaque at bilateral bulbs is redemonstrated IMPRESSION: Moderate atherosclerotic changes bilaterally without hemodynamically significant stenosi s seen in either internal carotid artery. Criteria for Assigning % of Stenosis / Diameter reduction (Estimation based on the indirect measurements of the internal carotid artery velocities (ICA PSV). 1. Normal (no stenosis)=ICA PSV < 125 cm/s: ratio < 2.0: ICA EDV<40 cm/s. 2. Less than 50% stenosis=ICA PSV < 125 cm/s: ratio < 2.0: ICA EDV<40 cm/s. 3. 50 to 69% stenosis=ICA PSV of 125 to 230 cm/s: ration 2.0 ? 4.0: ICA EDV 40-100 cm/s. 4. Greater than 70% stenosis to near occlusion= ICA PSV > 230 cm/s: ratio > 4.0: ICA EDV > 100 cm/s. 5. Near occlusion= ICA PSV velocities may be low or undetectable: variable ratio and ICA EDV. 6. Total occlusion=unable to detect flow.
--- NOTE | 2020-08-09 07:48 | MR ---
EXAMINATION TYPE: MR brain wo/w con DATE OF EXAM: 08/08/2020 COMPARISON: MRI brain October 25, 2017. HISTORY: Memory Loss over last few months TECHNIQUE: Multiplanar, multisequence images of the brain and brainstem is performed without and with IV contras t, utilizing 7 mL intravenous Gadavist . FINDINGS: Diffusion weighted images demonstrate no evidence of a recent infarct or other diffusion ab normality. There is no worrisome extra-axial fluid collection. The ventricular system and cisternal spaces are normal in size and appearance. The brain volume is age appropriate. Scattered small foci of T2 hyperintensity are redemonstrated throughout the white matter bilaterally. The lung bases abou t the proximal vessel ischemic change in patient this age. Roughly 40-50 scattered lesions are identi fied. Slight interval progression from prior study in number of lesions. Midline structures demonstrate normal morphology. The craniocervical junction appears within normal limits. Post contrast images demonstrate enhancing well-defined left parotid mass measuring roughly 2.6 x 2.8 x 3.1 cm was partially imaged on prior studies. The dural venous sinuses appear patent. The visualized sinuses are clear and the globes are intact. IMPRESSION: Mild to moderate nonspecific white matter changes presumed on the basis of product of chr onic small vessel ischemic change, slight interval progression from 2018 study. Persistent 3.1 cm lef t parotid mass worrisome for neoplasm, correlate clinically. ENT referral advised if has not been per formed.
== END | disposition home or self-care (01) ==
LOC: RADUSWWP 14:25
PROVIDERS: ATTEND Internal Medicine Geriatric Medicine
DX: I65.23 Occlusion and stenosis of bilateral carotid arteries (principal); R90.89 Other abnormal findings on diagnostic imaging of central nervous system
CPT/HCPCS: 93880; 70553; A9585

== ENCOUNTER 2024-03-16 10:59 | Observation (INO) | payer MEDICARE ==
--- NOTE | 2024-03-16 11:57 | CT ---
EXAMINATION TYPE: CT brain cspine wo con CT DLP: 1315.1 mGycm, Automated exposure control for dose reduction was used. DATE OF EXAM: 03/16/2024 11:44 AM COMPARISON: MR brain 08/08/2020, 10/25/2017, CT brain 10/25/2017. CLINICAL INDICATION:Male, 79 years old with history of Head injury, AMS; ams, head injury TECHNIQUE: Brain: Multiple axial CT images of the brain were obtained without IV contrast. Cspine: Axial CT images from the skull base to the inferior aspect of T2 we obtained without intraven ous contrast. Coronal and sagittal reformatted images were also reviewed. FINDINGS: Brain: Extra-axial spaces: No abnormal extra-axial fluid collections. Ventricular system: Within normal limits Cerebral parenchyma: No acute intraparenchymal hemorrhage or mass effect. The peng-white junction is well differentiated. Scattered hypoattenuating areas are seen within the periventricular white matte r. Cerebellum: Unremarkable. Mass effect: No evidence of midline shift. Intracranial vasculature: Atherosclerotic calcifications of the intracranial vessels. Soft tissues: Normal. Calvarium/osseous structures: No depressed skull fracture. Paranasal sinuses and mastoid air cells: Moderate scattered paranasal sinus disease. Visualized orbits: Bilateral aphakia Cervical spine: Fracture: None. Osseous structures: Multilevel degenerative disc disease changes with endplate spurring and disc oste ophyte complex's. Vertebral alignment: Mild retrolisthesis of C5 on C6. Spinal canal/Neural Foramina: Disc osteophyte complexes at C3-C4, C5-C6, C6-C7 with at least mild spi nal canal stenosis. Facet joint uncovertebral joint arthropathy scattered throughout the cervical spi ne with varying degrees of neural foraminal stenosis. Severe on the left at C3-C4. Moderate on the le ft at C4-C5. Moderate bilaterally at C5-C6 and C6-C7. Neck soft tissues: Prevertebral soft tissues are within normal limits. Redemonstration of left pariet al 3.1 cm hyperattenuating mass compared to surrounding parotid tissue (series 305, image 27). Other: The airway is patent. The lung apices are clear. Bilateral carotid bulb calcifications. IMPRESSION: 1. No acute intracranial process. 2. Nonspecific white matter changes, likely secondary to chronic small vessel ischemic disease. 3. No evidence of cervical spine fracture. 4. Mild multilevel degenerative disc disease with moderate facet arthropathy described above. 5. Degenerative mild retrolisthesis of C5 on C6. 6. Redemonstration of left parietal 3.1 cm mass dating back to 2018. 7. Moderate paranasal sinus disease.
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
[2024-03-16 12:37] LABS: Basophils % (A) 1 %; Eosinophils # (A) 0.1 k/uL (0-0.7); Eosinophils % (A) 2 %; HCT 47.9 % (39.0-53.0); HGB 15.9 gm/dL (13.0-17.5); Lymphocytes # (A) 0.9 k/uL (1.0-4.8); Lymphocytes % (A) 14 %; MCH 31.4 pg (25.0-35.0); MCHC 33.2 g/dL (31.0-37.0); MCV 94.7 fL (80.0-100.0); Mean Platelet Volume 7.6; Monocytes # (A) 0.5 k/uL (0-1.0); Monocytes % (A) 7 %; Neutrophils # (A) 5.2 k/uL (1.3-7.7); Neutrophils % (A) 77 %; Platelet Count 274 k/uL (150-450); RBC 5.06 m/uL (4.30-5.90); RDW 12.9 % (11.5-15.5); WBC 6.8 k/uL (3.8-10.6)
[2024-03-16 12:48] LABS: ALT 21 U/L (4-49); African American GFR (CKD) >90 (>60 ml/min/1.73 sqM); Albumin 4.3 g/dL (3.5-5.0); Anion Gap 7 mmol/L; Blood Urea Nitrogen 22 mg/dL (9-20); Calcium 9.3 mg/dL (8.4-10.2); Carbon Dioxide 23 mmol/L (22-30); Chloride 109 mmol/L (98-107); Glucose 85 mg/dL (74-99); Non-African American GFR(CKD) 87 (>60 ml/min/1.73 sqM); Partial Thromboplastin Time 24.8 sec (22.0-30.0); Prothrombin Time 10.7 sec (10.0-12.5); Sodium 139 mmol/L (137-145); Total Bilirubin 0.6 mg/dL (0.2-1.3); Total Protein 6.8 g/dL (6.3-8.2)
[2024-03-16 13:00] LABS: AST 29 U/L (17-59); Alkaline Phosphatase 82 U/L (38-126); Potassium 4.4 mmol/L (3.5-5.1)
--- NOTE | 2024-03-16 13:00 | XR ---
EXAMINATION TYPE: XR chest 2V DATE OF EXAM: 03/16/2024 COMPARISON: 10/25/2017 INDICATION: Altered mental status TECHNIQUE: Frontal and lateral views of the chest are obtained. FINDINGS: The heart size is normal. The pulmonary vasculature is normal. There may be some subtle left lower lobe atelectasis posterior to the diaphragm. Lungs otherwise appe ar clear. Sternotomy wires are present prior CABG.. IMPRESSION: 1. Minimal posterior left lower lobe atelectasis. Pneumonia could be considered. Follow-up can be per formed as clinically indicated
[2024-03-16 14:21] LABS: Appearance,Urine Clear (Clear); Bilirubin,Urine Negative (Negative); Blood,Urine Negative (Negative); Color,Urine Light Yellow; Glucose,Urine (UA) Negative (Negative); Ketones,Urine Negative (Negative); Leukocyte Esterase,Urine Negative (Negative); Nitrite,Urine Negative (Negative); PH, Urine 6.5 (5.0-8.0); Protein,Urine Negative (Negative); Specific Gravity,Urine 1.026 (1.001-1.035); Urobilinogen,Urine <2.0 mg/dL (<2.0)
[2024-03-16] MEDS ORDERED: NALOXONE 0.4 MG/ML 1 ML VIAL IV PRN (15:27)
[2024-03-16] MEDS: LORazepam 2 MG/ML INJ IV PRN (17:22)
[2024-03-16] MEDS: lamoTRIgine 100 MG TAB PO SCH (20:13)
[2024-03-16] MEDS: METOPROLOL TARTRATE 12.5 MG TAB PO SCH (20:13)
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
[2024-03-17 08:38] LABS: Basophils % (A) 1 %; Eosinophils # (A) 0.1 k/uL (0-0.7); Eosinophils % (A) 2 %; HCT 52.3 % (39.0-53.0); HGB 16.8 gm/dL (13.0-17.5); Lymphocytes # (A) 1.4 k/uL (1.0-4.8); Lymphocytes % (A) 20 %; MCH 30.8 pg (25.0-35.0); MCHC 32.2 g/dL (31.0-37.0); MCV 95.8 fL (80.0-100.0); Mean Platelet Volume 7.6; Monocytes # (A) 0.5 k/uL (0-1.0); Monocytes % (A) 7 %; Neutrophils # (A) 4.7 k/uL (1.3-7.7); Neutrophils % (A) 69 %; Platelet Count 301 k/uL (150-450); RBC 5.46 m/uL (4.30-5.90); RDW 12.9 % (11.5-15.5); WBC 6.8 k/uL (3.8-10.6)
[2024-03-17] MEDS: amLODIPine 2.5 MG TAB PO SCH (08:49)
[2024-03-17] MEDS: ISOSORBIDE MONONITRATE ER 30 MG TAB.ER.24H PO SCH (08:49)
[2024-03-17] MEDS: ATORVASTATIN 40 MG TAB PO SCH (08:49)
[2024-03-17 09:02] LABS: ALT 19 U/L (4-49); AST 26 U/L (17-59); African American GFR (CKD) >90 (>60 ml/min/1.73 sqM); Albumin 4.4 g/dL (3.5-5.0); Albumin/Globulin Ratio 1.8; Alkaline Phosphatase 87 U/L (38-126); Anion Gap 6 mmol/L; Blood Urea Nitrogen 19 mg/dL (9-20); Calcium 9.4 mg/dL (8.4-10.2); Carbon Dioxide 26 mmol/L (22-30); Chloride 108 mmol/L (98-107); Globulin 2.4 g/dL; Glucose 91 mg/dL (74-99); Non-African American GFR(CKD) 82 (>60 ml/min/1.73 sqM); Potassium 4.2 mmol/L (3.5-5.1); Sodium 140 mmol/L (137-145); Total Bilirubin 0.7 mg/dL (0.2-1.3); Total Protein 6.8 g/dL (6.3-8.2)
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
--- NOTE | 2024-03-17 16:06 | MR ---
EXAMINATION TYPE: MR brain wo/w con DATE OF EXAM: 03/17/2024 3:59 PM COMPARISON: 08/08/2020 HISTORY: Seizure CONTRAST: Patient received 7.5 mL intravenous Gadavist gadolinium contrast. Multiplanar and multispin-echo imaging of the brain was performed . Pre and post contrast enhanced i mages are obtained. The ventricles, basal cisterns and sulci overlying the cerebral convexities are mildly enlarged. There is evidence of mild periventricular white matter ischemic demyelination. Remote deep white matter insults are also noted. No acute edema is seen on diffusion weighted imaging. There is no evidence for midline shift or mass effect. Acute intracranial hemorrhage or extra-axial collection is not evident. No enhancing lesions are seen. The paranasal sinuses and mastoid air cells are well-aerated. 3.2 cm left parotid mass dating back to [address] CT. IMPRESSION: Age-related atrophic and chronic small vessel ischemic change. No acute intracranial process at this time. No intracranial enhancing lesions are seen. Chronic left parotid mass. Correlate clinically .
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
[2024-03-17 18:58] VITALS: RESP 16
--- NOTE | 2024-03-17 22:58 | EEG ---
ELECTROENCEPHALOGRAM REPORT CLINICAL HISTORY: This is a 79-year-old gentleman with history of seizure, who has confusion. The video EEG is obtained to evaluate for seizure epileptiform activity. RELEVANT MEDICATION: Lamictal. EEG TYPE: This is a routine 21-channel EEG with video using the 10/20 electrode placement system. DESCRIPTION: Wakefulness is only obtained. During awake state, the posterior-dominant rhythm consists of [id number] voltage of 9 to 10 hertz activity that is well modulated and well sustained. There is no physiological stage 2 sleep architecture. There is no focal slowing. Interictal and ictal: There is rare polyspike and slow wave and felt over the right central/frontal but had one that seems more diffuse 1 hertz polyspike with slow wave. ACTIVATION PROCEDURE: Photic stimulation did not evoke a posterior driving response. There is no abnormality during the photic stimulation. Hyperventilation is not performed. CLINICAL INTERPRETATION: This is an abnormal routine EEG. The epileptiform discharge as described above can increase risk for seizure or status epilepticus. Otherwise, There is no focal slowing or seizure on the EEG. Clinical correlation is recommended. MMODL / IJN: [id number] / MTDD
[2024-03-18 02:51] VITALS: TEMP 98.2
[2024-03-18 07:28] VITALS: BP 146/70; PULSE 67
--- NOTE | 2024-03-18 11:36 | P.PN ---
Subjective Progress Note Date: 03/18/24 I am following up with the patient. No further confusion or seizure-like activity. Regarding his left carotid mass he stated that he followed up with a neurologist as well as ENT as an outpatient and was told no intervention is needed. Regarding starting an additional antiepileptic drug in addition to his Lamictal he stated that he spoke with his primary attending and they will have his outpatient neurologist (Dr. Rico) to address it. Objective - Vital Signs Vital signs: Vital Signs Temp 98.2 F 03/18/24 07:00 Pulse 67 03/18/24 08:00 Resp 16 03/18/24 08:00 BP 146/70 03/18/24 07:00 Pulse Ox 97 03/18/24 07:00 FiO2 Intake & Output 03/17/24 03/18/24 03/18/24 18:59 06:59 18:59 Intake Total 120 1440 Balance 120 1440 Weight 72.121 kg Intake: Oral 120 1440 Other: Voiding Method Toilet Toilet Toilet # Voids 3 3 # Bowel Movements 1 - Exam GENERAL: The patient is sitting up in a recliner chair and is not in acute distress. NEUROLOGICAL: Higher mental function: The patient is awake, alert, oriented to self, place and time. Patient is following commands. No aphasia and no neglect. Cranial nerves: The pupils are round, equal and reactive to light and accommodation. Visual keyes are full to confrontation throughout. Extraocular movement is intact no nystagmus is noted. Facial sensation is normal to touch throughout. The facial strength is normal throughout. Hearing is normal bilaterally to hand rub. Tongue is midline and moved [id number] without any difficulty. No dysarthria is noted. Shoulder shrug is normal bilaterally. Motor: The strength is 5 over 5 throughout. Normal tone and bulk. Cerebellum: Normal finger to nose heel to langford bilaterally. Sensation: Sensation is normal to touch throughout. Reflexes (right/left): 2+ throughout. Plantars are downgoing bilaterally. Some of the workup during this hospital visit consisted of: CBC with differential is unremarkable Chemistry panel is sodium, glucose, AST ALT, calcium are within normal limits Lamictal is 10 normal levels are between 2-15. CT of the head is reported as no acute intracranial process. Nonspecific white matter changes, likely secondary due to chronic small vessel ischemic disease. CT cervical spine is reported as no cervical evidence of cervical spine fracture. Mild multilevel degenerative disc disease with moderate facet arthropathy described above. Degenerative mild retrolisthesis of C5 on C6. Redemonstration of left parietal 3.1 cm mass dating back to 2018. Moderate paranasal sinus disease. MRI Brain w/ and w/o: Age-related atrophy and chronic small vessel ischemic change. No acute intracranial process at this time. No intracranial enhancing lesion are seen. Chronic left parotid mass. Correlate clinically. I personally reviewed the MRI and agree with the report Routine EEG is abnormal. The epileptiform discharge can increase risk for seizure. There is no focal slowing or seizure on the study. - Labs CBC & Chem 7: 03/17/24 08:03 03/17/24 08:03 Assessment and Plan Assessment: This is a 79-year-old gentleman history of seizure, left parotid mass, who presents to the emergency department because of confusion. Patient came back home from a trip from [place] towards the end of February 2024 and it seems to the patient developed upper respiratory tract infection. Patient stated that since this past Saturday the patient has been confused. Episodes of confusion is possibly due to breakthrough seizure and it seems provoked due to his recent upper respiratory tract infection. Currently the patient is oriented x 3 and no focal deficit. EEG showed epileptiform discharge but no seizure. History of seizure since 50 years ago and patient is on Lamictal 200 mg twice daily. Recent upper respiratory tract infection History of left parotid mass History of coronary artery disease status post stent as well as a history of triple bypass surgery Plan: Recommend consideration of prolonged EEG as an outpatient. Patient is resumed on his home dose of Lamictal 200 mg twice daily. Since the patient has been having seizure in the past and has been on that same dose of Lamictal can can consider adding Keppra 500 mg twice daily for better seizure control. Patient states he will have this addressed by his outpatient neurologist (Dr. Rico). Seizure precaution and pads Per [facility], because of the seizure, to avoid driving for 6 months until seizure-free, avoid heights, avoid swimming unassisted or using heavy machinery Will defer the rest of the medical management the primary and other specialist Plan discussed with the patient. There is no further neurological work-up. Time with Patient: Less than 30
== END 2024-03-18 10:21 | disposition home or self-care (01) ==
LOC: EC 10:59 → 6NMEDSUR 15:27 → 1SOBS 03-17 11:23
PROVIDERS: ADMIT Internal Medicine Geriatric Medicine; ATTEND Internal Medicine Geriatric Medicine
DX: R41.82 Altered mental status, unspecified (principal); G40.909 Epilepsy, unspecified, not intractable, without status epilepticus; I25.10 Atherosclerotic heart disease of native coronary artery without angina pectoris; E78.5 Hyperlipidemia, unspecified; I10 Essential (primary) hypertension; N40.0 Benign prostatic hyperplasia without lower urinary tract symptoms; Z85.828 Personal history of other malignant neoplasm of skin; Z95.5 Presence of coronary angioplasty implant and graft; Z79.899 Other long term (current) drug therapy
CPT/HCPCS: 96374; 99285; 36415; 95816; 93005; 80053 ×2; 80175; 80183; 84484; 85025 ×2; 85610; 85730; 81003; 71046; 72125; 70450; 70553; G0378 ×3; J2060; A9585